=== PATIENT | female | born 1955 | race Hispanic/Latino ===

== ENCOUNTER → 2024-09-16 | Day surgery (SDC) | payer MEDICARE ==
[2024-09-12 13:07] LABS: BASOPHILS # (AUTO) 0.1 (0.0-0.1); BASOPHILS % 0.4 % (0.0-1.0); EOSINOPHILS # (AUTO) 0.6 (0.0-0.4); EOSINOPHILS % 3.9 % (0.0-6.0); HEMATOCRIT 39.5 % (34.2-44.1); HEMOGLOBIN 12.9 g/dL (12.0-16.0); LYMPHOCYTES # (AUTO) 2.9 (1.0-3.2); LYMPHOCYTES % 19.5 % (18.0-39.1); MEAN CORPUSCULAR HEMOGLOBIN 29.8 pg (28-32); MEAN CORPUSCULAR HGB CONC 32.7 g/dL (31-35); MEAN CORPUSCULAR VOLUME 91.2 fL (81-99); MONOCYTES # (AUTO) 0.8 (0.2-0.8); MONOCYTES % 5.3 % (4.4-11.3); NEUTROPHILS % 68.6 % (38.7-80.0); PLATELET COUNT 479 x10e3/uL (140-360); RED BLOOD COUNT 4.33 x10e6/uL (3.6-5.1); RED CELL DISTRIBUTION WIDTH 13.6 % (11.7-14.4); WHITE BLOOD COUNT 14.62 x10e3/uL (4.8-10.8)
[~2024-09-16] MED LIST: ACETAMINOPHEN500 M1 PO; DICYCLOMINE HCL20 MG PO; ETODOLAC300 MG PO; FENTANYL CITRATE/PF 100MCG/2 ML INJ ONE; GABAPENTIN300 MG PO; GEMFIBROZIL600 MG PO; HYOSCYAMINE SULFATE 0.5 MG/ML INJ ONE; LIDOCAINE HCL 2% LOCAL INJ 5 ML SDV VIAL INJ ONE; METFORMIN HCL500 MG PO; METOCLOPRAMIDE HCL 10 MG/2ML VIAL ONE; MIDAZOLAM HCL 2 MG/2 ML VIAL ONE; OZEMPIC0.25 MG/02 SC; PROPOFOL IV EMULSION 10 MG/ML 20 ML VIAL ONE; ZESTRIL10 MG PO
[2024-09-16] MEDS: LACTATED RINGER'S 1,000 ML ONE (13:00)
[2024-09-16 16:12] VITALS: TEMP 98.9
[2024-09-16 16:40] VITALS: BP 131/71; PULSE 93; RESP 16; O2SAT 98
[2024-09-16 16:56] LABS: CDIFF AG QUIK CHEK NEGATIVE (NEGATIVE); CDIFF TOX QUIK CHEK NEGATIVE (NEGATIVE); WBC,FECAL (FECAL LACTOFERRIN) NEGATIVE (NEGATIVE)
== END | disposition home or self-care (01) ==
LOC: OR 12:27
PROVIDERS: ATTEND Internal Medicine Gastroenterology
DX: K29.50 Unspecified chronic gastritis without bleeding (principal); K31.7 Polyp of stomach and duodenum; K63.3 Ulcer of intestine; K31.89 Other diseases of stomach and duodenum; K22.89 Other specified disease of esophagus; K20.90 Esophagitis, unspecified without bleeding; K21.9 Gastro-esophageal reflux disease without esophagitis; K62.89 Other specified diseases of anus and rectum; K57.30 Diverticulosis of large intestine without perforation or abscess without bleeding; K64.8 Other hemorrhoids; K76.0 Fatty (change of) liver, not elsewhere classified; E11.22 Type 2 diabetes mellitus with diabetic chronic kidney disease; I12.9 Hypertensive chronic kidney disease with stage 1 through stage 4 chronic kidney disease, or unspecified chronic kidney disease; N18.9 Chronic kidney disease, unspecified; Z71.89 Other specified counseling; E66.9 Obesity, unspecified; Z01.810 Encounter for preprocedural cardiovascular examination; Z01.812 Encounter for preprocedural laboratory examination; Z79.84 Long term (current) use of oral hypoglycemic drugs; Z79.85 Long-term (current) use of injectable non-insulin antidiabetic drugs; Z79.899 Other long term (current) drug therapy; Z68.41 Body mass index [BMI] 40.0-44.9, adult; Z71.3 Dietary counseling and surveillance
CPT/HCPCS: 36415 ×2; 43239; 45380; 82948; 83630; 83993; 85025; 86140; 87045; 87177; 87324; 87328; 87449; 93005; J1980; J2003; J2250; J2470; J2704; J2765; J3010; J7121